=== PATIENT | male | born 1985 | race Caucasian/White ===

== ENCOUNTER 2020-10-03 14:20 | Emergency (ER) | payer OTHER ==
[~2020-10-03] VITALS: Ht 180.3 cm; Wt 100.2 kg
[2020-10-03 14:26] VITALS: BP 156/110
[2020-10-03] MEDS ORDERED: KETOROLAC 30 MG/ML VIAL IM ONE (14:40)
[2020-10-03] MEDS ORDERED: DICL1GEL19 TP (15:11)
[2020-10-03] MEDS ORDERED: CAPS1ADH5 TP (15:11)
[2020-10-03] MEDS ORDERED: IBUP-2213 PO (15:11)
[2020-10-03 15:30] VITALS: BP 137/83
== END 2020-10-03 15:30 | disposition home or self-care (01) ==
LOC: MED 14:20
DX: S16.1XXA Strain of muscle, fascia and tendon at neck level, initial encounter (principal); Z90.49 Acquired absence of other specified parts of digestive tract; Z79.899 Other long term (current) drug therapy; X58.XXXA Exposure to other specified factors, initial encounter; Y93.89 Activity, other specified; Y92.89 Other specified places as the place of occurrence of the external cause; Y99.8 Other external cause status
CPT/HCPCS: 96372; 99283; J1885

== ENCOUNTER 2023-02-16 07:48 | Emergency (ER) | payer OTHER ==
[~2023-02-16] VITALS: Ht 180.3 cm; Wt 105.7 kg
[~2023-02-16 07:48] MED LIST: CAPS1ADH5 TP; DICL1GEL19 TP; IBUP-2213 PO
[2023-02-16 07:50] VITALS: BP 143/90; PULSE 72; RESP 18; TEMP 98.1; O2SAT 100
[2023-02-16] MEDS ORDERED: AMOX-1230 PO (08:09)
== END 2023-02-16 08:25 | disposition home or self-care (01) ==
LOC: MED 07:48
DX: S01.511A Laceration without foreign body of lip, initial encounter (principal); Z79.899 Other long term (current) drug therapy; Z79.1 Long term (current) use of non-steroidal anti-inflammatories (NSAID); W18.39XA Other fall on same level, initial encounter; Y92.89 Other specified places as the place of occurrence of the external cause; Y93.89 Activity, other specified; Y99.8 Other external cause status
CPT/HCPCS: 99283